=== PATIENT | male | born 1995 | race African-American/Black ===

== ENCOUNTER 2023-12-04 22:12 | Emergency (ER) | payer SELFPAY ==
[~2023-12-04] VITALS: Ht 185.4 cm; Wt 87.5 kg
[2023-12-04 22:23] VITALS: TEMP 98.2; O2SAT 100
[2023-12-04] MEDS: TETRACAINE 0.5% OPHTH DROPS 4ML LEFTEYE ONE (23:00)
[2023-12-04] MEDS: FLUORESCEIN SODIUM 1MG/STRIP LEFTEYE ONE (23:15)
[2023-12-05] MEDS ORDERED: IBUP-2030 MT (00:56)
[2023-12-05 01:08] VITALS: BP 144/79; PULSE 46; RESP 16
== END 2023-12-05 01:10 | disposition home or self-care (01) ==
LOC: ER 22:12
DX: H57.12 Ocular pain, left eye (principal)
CPT/HCPCS: 99284